=== PATIENT | female | born 1990 | race American Indian/Alaskan Native ===

== ENCOUNTER 2020-07-21 20:47 | Emergency (ER) | payer MEDICAID ==
--- NOTE | 2020-07-21 23:12 | Emergency Department Report ---
HPI - HPI HPI: Room 17 The patient is a 30-year-old female present with a chief complaint of walking in a parking lot. Patient was brought in by police after being found naked in a parking lot. When asked why she was naked in a parking lot the patient states she does not know. Patient states she took Seroquel as prescribed and does not know how she got into a parking lot naked. Patient has a history of bipolar disorder. Patient denies suicidal or homicidal ideation. Patient denies auditory visual hallucinations. When asked how she is feeling the patient states she just feels tired. <JOSÉ MIGUEL HALL - Last Filed: 07/21/20 23:10> <KENIA WILSON - Last Filed: 07/22/20 11:19> - General Chief Complaint: Psych Time Seen by Provider: 07/21/20 23:04 ED Past Medical Hx - Past Medical History Hx Psychiatric Treatment: Yes (Bipolar) - Surgical History Additional Surgical History: - Family History Family history: no significant - Social History Smoking Status: Former Smoker (None since April 2020) Substance Use Type: Marijuana <JOSÉ MIGUEL HALL - Last Filed: 07/21/20 23:10> ED Review of Systems ROS: Stated complaint: MH EVAL Other details as noted in HPI Constitutional: no symptoms reported Respiratory: no symptoms reported Endocrine: no symptoms reported Psychiatric: denies: auditory hallucinations, visual hallucinations, homicidal thoughts, suicidal thoughts <JOSÉ MIGUEL HALL - Last Filed: 07/21/20 23:10> ROS: Stated complaint: MH EVAL Other details as noted in HPI <KENIA WILSON - Last Filed: 07/22/20 11:19> Physical Exam - Physical Exam Vital Signs: Vital Signs 07/21/20 21:08 Temperature 97.8 F Pulse Rate 107 H Respiratory 18 Rate Blood Pressure 111/55 O2 Sat by Pulse 98 Oximetry Physical Exam: GENERAL: The patient is well-developed well-nourished female lying on stretcher not appearing to be in acute distress. [] HEENT: Normocephalic. Atraumatic. Extraocular motions are intact. Patient has moist mucous membranes. NECK: Supple. Trachea midline CHEST/LUNGS: Clear to auscultation. There is no respiratory distress noted. HEART/CARDIOVASCULAR: Regular. There is no tachycardia. There is no gallop rub or murmur. ABDOMEN: Abdomen is soft, nontender. Patient has normal bowel sounds. There is no abdominal distention. SKIN: There is no rash. There is no edema. There is no diaphoresis. NEURO: The patient is awake, alert, and oriented. The patient is cooperative. The patient has normal speech MUSCULOSKELETAL: There is no evidence of acute injury. <JOSÉ MIGUEL HALL - Last Filed: 07/21/20 23:10> - Physical Exam Vital Signs: Vital Signs 07/21/20 07/22/20 07/22/20 21:08 02:04 07:11 Temperature 97.8 F 98.4 F Pulse Rate 107 H 68 Respiratory 18 16 18 Rate Blood Pressure 111/55 Blood Pressure 102/60 [Left] O2 Sat by Pulse 98 98 Oximetry 07/22/20 09:09 Temperature 98.3 F Pulse Rate 70 Respiratory 20 Rate Blood Pressure Blood Pressure 103/58 [Left] O2 Sat by Pulse 100 Oximetry <KENIA WILSON S - Last Filed: 07/22/20 11:19> ED Course Vital Signs 07/21/20 21:08 Temperature 97.8 F Pulse Rate 107 H Respiratory 18 Rate Blood Pressure 111/55 O2 Sat by Pulse 98 Oximetry <JOSÉ MIGUEL HALL - Last Filed: 07/21/20 23:10> Vital Signs 07/21/20 07/22/20 07/22/20 21:08 02:04 07:11 Temperature 97.8 F 98.4 F Pulse Rate 107 H 68 Respiratory 18 16 18 Rate Blood Pressure 111/55 Blood Pressure 102/60 [Left] O2 Sat by Pulse 98 98 Oximetry 07/22/20 09:09 Temperature 98.3 F Pulse Rate 70 Respiratory 20 Rate Blood Pressure Blood Pressure 103/58 [Left] O2 Sat by Pulse 100 Oximetry <KENIA WILSON S - Last Filed: 07/22/20 11:19> ED Medical Decision Making - Differential Diagnosis Bipolar disorder, medication reaction, substance abuse, psychosis NOS <JOSÉ MIGUEL HALL - Last Filed: 07/21/20 23:10> - Lab Data Result diagrams: 07/21/20 23:38 07/21/20 23:38 - Medical Decision Making Patient was seen by the psychiatric assessment team and he did not feel that she meets criteria for involuntary inpatient stabilization. Patient is currently awake and alert and oriented. She denies any suicidal or homicidal ideations. She has been calm and appropriate. She has a psychiatrist that she follows with and there is apparently an open appointment today at around 2 PM that the patient will go to follow-up with. She has been instructed to return to the emergency department with any thoughts of harming herself or others, or with any acute distress. <KENIA WILSON S - Last Filed: 07/22/20 11:19> Critical care attestation.: If time is entered above; I have spent that time in minutes in the direct care of this critically ill patient, excluding procedure time. <JOSÉ MIGUEL HALL K - Last Filed: 07/21/20 23:10> Critical Care Time: No Critical care attestation.: If time is entered above; I have spent that time in minutes in the direct care of this critically ill patient, excluding procedure time. <KENIA WILSON S - Last Filed: 07/22/20 11:19> ED Disposition <JOÉS MIGUEL HALL K - Last Filed: 07/21/20 23:10> Is pt being admited?: No <KENIA WILSON S - Last Filed: 07/22/20 11:19> Clinical Impression: History of bipolar disorder, Medical clearance for psychiatric admission Disposition: [id number] TO HOME OR SELFCARE Condition: Stable Additional Instructions: Pt is to follow up with her current outpatient provider [facility] as they have an open appointment at 2pm today 07/22/2020 for the pt to be seen by the psychiatrist as the pt reports her medications were recently changed and this led to the adverse reaction she experienced. [facility] CRISIS LINE: Referrals: JOSE ANTONIO SAHA MD [Primary Care Provider] - 3-5 Days
[2020-07-21 23:47] LABS: Basophils % (Auto) 0.2 % (0.0-1.8); Hematocrit 35.8 % (30.3-42.9); Lymphocytes # (Auto) 0.9 K/mm3 (1.2-5.4); Lymphocytes % (Auto) 13.1 % (13.4-35.0); Mean Corpuscular HGB Conc 34 % (30-34); Mean Corpuscular Volume 90 fl (79-97); Monocytes # (Auto) 0.5 K/mm3 (0.0-0.8); Monocytes % (Auto) 6.5 % (0.0-7.3); Platelet Count 203 K/mm3 (140-440); Red Blood Count 3.96 M/mm3 (3.65-5.03); Red Cell Distribution Width 15.1 % (13.2-15.2)
[2020-07-22 00:07] LABS: Blood Urea Nitrogen 7 mg/dL (7-17); Hemolysis Index 12
[2020-07-22 00:11] LABS: BUN/Creatinine Ratio 14
[2020-07-22 09:10] VITALS: BP 103/58
[2020-07-22 09:32] LABS: Amphetamine Screen,Urine Negative; Benzodiazepines Screen,Urine Negative; Cocaine Screen,Urine Negative; Methadone Screen,Urine Negative; Opiate Screen,Urine Negative; RBC,Urine < 1.0 /HPF (0.0-6.0)
[2020-07-22 09:42] LABS: Bilirubin,Urine NEG (Negative); Blood,Urine NEG (Negative); Color,Urine Yellow (Yellow); Protein,Urine <15 mg/dL mg/dL (Negative); Urobilinogen,Urine < 2.0 mg/dL (<2.0); WBC,Urine < 1.0 /HPF (0.0-6.0)
[2020-07-22 09:54] LABS: Cannabinoid Screen,Urine Positive
== END 2020-07-22 11:22 | disposition home or self-care (01) ==
LOC: ED 20:47
DX: F31.9 Bipolar disorder, unspecified (principal); F12.90 Cannabis use, unspecified, uncomplicated; Z00.8 Encounter for other general examination; Z98.890 Other specified postprocedural states; Z87.891 Personal history of nicotine dependence; Z91.013 Allergy to seafood
CPT/HCPCS: 36415; 80048; 80307; 80320; 81001; 85025; G0480